=== PATIENT | male | born 1950 | race Caucasian/White ===

== ENCOUNTER 2020-05-21 18:13 | Inpatient (IN) | payer MEDICARE, BC ==
[2020-05-21] MEDS ORDERED: Fentanyl 100 MCG/2 ML VIAL ONE (18:30)
[2020-05-21] MEDS ORDERED: Ketorolac Tromethamine 30 MG/ML VIAL ONE (18:30)
--- NOTE | 2020-05-21 19:38 | RAD ---
AP PELVIS: HISTORY: Fall with injury to left hip. FINDINGS: A comminuted intertrochanteric fracture involving the left hip is noted. The pelvis appears intact. The right hip appears intact. IMPRESSION: Comminuted intertrochanteric fracture of the left hip. POS: AGW
[2020-05-21 19:56] LABS: #Basophils 0.1 thou/uL (0.0-0.2); #Eosinphils 0.1 thou/uL (0.0-0.7); #Lymphocytes 1.3 thou/uL (1.20-3.40); #Monocytes 0.7 thou/uL (0.11-0.59); %Basophils 0.5 % (0.0-1.0); %Eosinophils 0.6 % (0.0-10.0); %Lymphocytes 12.9 % (21.0-51.0); %Monocytes 6.6 % (0.0-10.0); %Neutrophils 79.4 % (42.0-75.0); Hemoglobin 15.3 g/dL (14.0-18.0); Mean Corpuscular HGB CONC 33.4 g/dL (32.0-36.0); Mean Corpuscular Hemoglobin 31.8 pg (27.0-31.0); Mean Corpuscular Volume 95.3 fL (78.0-98.0); RBC Distribution Width 11.8 % (11.5-14.5); Red Blood Cell (RBC) Count 4.82 mill/uL (4.70-6.10); White Blood Cell (WBC) Count 10.1 thou/uL (4.8-10.8)
[2020-05-21 20:15] LABS: Large Platelets SLIGHT; MDiff Complete? YES; Mean Platelet Volume 12.3 fL (7.4-10.4); Platelet Clumps SLIGHT; Platelet Count 106 thou/uL (130-400); Platelet Morphology Comment PLT clumps seen-LOW; Polychromasia SLIGHT = 2-3 cells (100X) (0-2/hpf)
[2020-05-21 20:16] LABS: ALT (SGPT) 32 U/L (8-55); AST (SGOT) 21 U/L (5-34); Albumin 3.9 g/dL (3.4-4.8); Alkaline Phosphatase 77 U/L (40-110); Anion Gap 13 mmol/L (10-20); BUN (Urea Nitrogen) 13 mg/dL (8.4-25.7); Bilirubin, Total 0.7 mg/dL (0.2-1.2); Calc. Creatinine Clearance 0 mL/min (70-130); Calcium 9.1 mg/dL (7.8-10.44); Carbon Dioxide 25 mmol/L (23-31); Chloride 104 mmol/L (98-107); Globulin 2.6 g/dL (2.4-3.5); Glucose 114 mg/dL (80-115); Lipase 22 U/L (8-78); Magnesium 1.9 mg/dL (1.6-2.6); Protein, Total 6.5 g/dL (5.8-8.1); Sodium 138 mmol/L (136-145)
--- NOTE | 2020-05-21 21:04 | HP ---
REQUESTING PHYSICIAN: Dr. Stratton. CONSULTATIONS: Orthopedics, Dr. Saxena. HISTORY OF PRESENT ILLNESS: The patient is a 70-year-old man, who [place] his [place] when he slipped and fell on the ice, landing on his left hip. The patient was unable to ambulate. He was able to contact EMS, who brought him to the emergency department where he underwent evaluation and examination and was noted to have a left proximal femur fracture. At which time, we were asked to evaluate the patient for admission and obtain Orthopedic consultation. The patient denies loss of consciousness or being on any blood thinners. He had no syncopal events prior to his fall. ALLERGIES: LATEX. CURRENT MEDICATIONS: PAST MEDICAL HISTORY: Hyperlipidemia. PAST SURGICAL HISTORY: Bilateral knee surgeries and TURP. SOCIAL HISTORY: The patient drinks alcohol two to three times a week, one to two glasses of wine, dips tobacco. Denies drug use. He is retired from . Lives at home with his spouse. REVIEW OF SYSTEMS: 10-point review of systems is negative as otherwise stated. PHYSICAL EXAMINATION: VITAL SIGNS: Blood pressure 118/69, heart rate 75, respirations 12, oxygen saturation 99% on room air, and temperature is 97.6. GENERAL: The patient is resting comfortably in the ER bed. He is awake, alert, conversant, appropriate. Chemult Coma Scale is 15. HEENT: Head is normocephalic and atraumatic. Eyes, extraocular motion intact. PERRLA bilaterally. Ears are atraumatic without discharge. Nose is atraumatic without discharge. Oropharynx is clear. NECK: Nontender. Trachea is midline with no JVD. CHEST: Clear to auscultation with good inspiratory and expiratory effort. HEART: Regular rate and rhythm. ABDOMEN: Soft, flat, nontender with active bowel sounds. EXTREMITIES: Neurovascularly intact x4. Pelvis is stable with tenderness to palpation to his left hip consistent with his fracture. His left lower extremity again is neurovascularly intact. His foot is slightly externally rotated. BACK: By report is atraumatic and nontender. LABORATORY FINDINGS: White blood cell count 10.1, hemoglobin 15.3, hematocrit 45.9, platelets 106. Sodium 138, potassium 4.0, chloride 104, CO2 of 25, BUN 13, creatinine 1.01, glucose 114. LFTs are unremarkable. Lipase is 22. COVID swab is pending. RADIOGRAPHS: AP pelvis shows a comminuted intertrochanteric fracture of the left hip. ASSESSMENT AND PLAN: 1. Status post ground level fall. 2. Left intertrochanteric femur fracture. 3. History of hyperlipidemia. 4. Acute pain secondary to trauma. Plan will be to admit the patient to the surgical floor. He will be made n.p.o. after midnight. We will do pain control, pulmonary toilet, gastritis and mechanical VTE prophylaxis. Postoperatively, we will begin working physical and occupational therapy and discuss placement at that time. Dr. Saxena was contacted regarding this patient and he will see the patient in the morning and plan for surgery in the morning. The evaluation, examination, laboratory, and radiographic findings discussed with attending after this dictation. Job ID: [id number]
[2020-05-21 21:31] LABS: SARS-CoV-2 NAA Rapid Test Not Detected (NotDetected)
[2020-05-21] MEDS ORDERED: Ondansetron ODT 4 MG TAB PO PRN (23:42)
[2020-05-21] MEDS ORDERED: Cyclobenzaprine 10 MG TAB PO PRN (23:42)
[2020-05-21] MEDS ORDERED: Dextrose 50% Abboject 50 ML SYRINGE SLOW IVP PRN (23:42)
[2020-05-21] MEDS ORDERED: hydrALAZINE 20 MG/ML VIAL SLOW IVP PRN (23:42)
[2020-05-21] MEDS ORDERED: Ondansetron PF 4 MG/2 ML Vial IVP PRN (23:42)
[2020-05-21] MEDS ORDERED: Dextrose 5% in Water 1,000 ML IV PRN (23:42)
[2020-05-21] MEDS ORDERED: Morphine 2 MG/ML VIAL SLOW IVP PRN (23:42)
[2020-05-21 23:45] VITALS: BMI 29.8
[2020-05-21] MEDS ORDERED: traMADol HCl 50 MG TAB ONE (23:57)
[2020-05-21] MEDS ORDERED: Famotidine 20 MG TAB PO SCH (23:59)
[2020-05-22] MEDS: Sodium Chloride 0.9% 1,000 ML IV SCH ×2 (00:03→12:41)
[2020-05-22] MEDS: traMADol HCl 50 MG TAB PO PRN ×2 (00:03→20:18)
[2020-05-22] MEDS ORDERED: Famotidine 20 MG TAB ONE (00:06)
[2020-05-22] MEDS ORDERED: Acetaminophen 325 MG TAB ONE ×2 (00:06→12:38)
[2020-05-22] MEDS: Acetaminophen 500 MG TAB PO SCH ×3 (00:08→20:25)
[2020-05-22 05:38] LABS: #Eosinphils 0.1 thou/uL (0.0-0.7); #Lymphocytes 2.3 thou/uL (1.20-3.40); #Neutrophils 5.1 thou/uL (1.40-6.50); %Basophils 0.4 % (0.0-1.0); %Eosinophils 1.5 % (0.0-10.0); %Monocytes 11.3 % (0.0-10.0); %Neutrophils 59.7 % (42.0-75.0); Hemoglobin 13.3 g/dL (14.0-18.0); Mean Corpuscular HGB CONC 33.1 g/dL (32.0-36.0); Mean Corpuscular Hemoglobin 31.6 pg (27.0-31.0); Mean Corpuscular Volume 95.4 fL (78.0-98.0); Mean Platelet Volume 11.8 fL (7.4-10.4); Platelet Count 94 thou/uL (130-400); RBC Distribution Width 11.8 % (11.5-14.5); White Blood Cell (WBC) Count 8.6 thou/uL (4.8-10.8)
[2020-05-22 05:47] LABS: Anion Gap 11 mmol/L (10-20); BUN (Urea Nitrogen) 16 mg/dL (8.4-25.7); Calc. Creatinine Clearance 116 mL/min (70-130); Calcium 8.5 mg/dL (7.8-10.44); Carbon Dioxide 22 mmol/L (23-31); Chloride 107 mmol/L (98-107); Glucose 101 mg/dL (80-115); Potassium 3.9 mmol/L (3.5-5.1); Sodium 136 mmol/L (136-145)
[2020-05-22] MEDS ORDERED: Ibuprofen 200 MG TAB ONE (06:47)
[2020-05-22] MEDS: Ibuprofen 600 MG TAB PO SCH ×3 (06:50→22:06)
[2020-05-22] MEDS ORDERED: CEFAZOLIN 2 GM in Premix Bag 1 BAG IVPB SCH (07:30)
--- NOTE | 2020-05-22 08:26 | CON ---
DATE OF CONSULTATION: This is Apollo Walsh PA-C dictating a report for Lamonte Saxena MD. HISTORY OF PRESENT ILLNESS: We were asked by ER and Trauma to see the patient. The patient was outside, slipped, fell, sustaining a left hip fracture. Denies any other injuries. No loss of consciousness. He did state that he knew he broke his hip because he heard a loud crunch. He has been n.p.o. since last night. is coming in this morning. Otherwise, he is awake, alert, oriented and currently in again no acute distress. PAST MEDICAL HISTORY: Positive for gout, hyperlipidemia. CURRENT MEDICATIONS: Simvastatin. ALLERGIES: LATEX. SURGERIES: Knees, TURP. FAMILY HISTORY: For this visit is noncontributory. SOCIAL HISTORY: Occasional EtOH beverage, 2 to 3 times a week. Dips tobacco. No drug use. He is a retired software support engineer. Resides at home with his spouse. REVIEW OF SYSTEMS: Other than left hip pain, he has denied any chest pain, shortness of breath. No confusion. No bowel or bladder problems. Rest of review of systems is negative. PHYSICAL EXAMINATION: GENERAL: Well-nourished, well-developed male, alert, pleasant, in no acute distress. NEUROLOGIC: Speech clear. Affect pleasant. Answers questions appropriately. He is alert and oriented x3. HEENT: Scalp, atraumatic. Normal exam. Face symmetric. Tongue midline. NECK: Supple. Trachea midline. EXTREMITIES: Upper extremities; equal size, shape, and symmetry. Normal bulk and tone. Movements, pulses, and sensations are equal. Lower extremities; left lower extremity is a little shortened and outward rotated. Otherwise, he has good strength and sensations, and are equal bilaterally. He is moving both lower extremities well, right greater than left obviously due to the fracture. CHEST: Respirations 16. PELVIS: No pain with rocking. LABORATORY DATA AND IMAGING: CBC, stable. Chemistries, stable. COVID, negative. X-rays show a left intertrochanteric fracture. PLAN: I spoke with the patient. He will undergo a left trochanteric femoral nail, short in the left hip. I went over the details of the surgery with the patient. His questions and concerns have been addressed. He understands risks and benefits of surgery and is amenable to go forth with surgery. We will add a two-view hip x-ray. His will come in this morning. Once he gets through his surgery and he is feeling better, he gets start some therapy this afternoon. The patient will get antibiotics postop. He was added on the surgery schedule. Job ID: [id number]
--- NOTE | 2020-05-22 09:54 | RAD ---
TWO VIEWS LEFT HIP: DATE: 05/22/2020. PROVIDED CLINICAL HISTORY: Preop. FINDINGS: Comparison 05/21/2020 pelvic radiograph. Displaced and angulated intertrochanteric left proximal femo ral fracture is redemonstrated. Additional fracture is not evident. The left hip joint space appear s preserved. The femoral acetabular relationship appears maintained. IMPRESSION: Displaced intertrochanteric left proximal femoral fracture. POS: PEARL
[2020-05-22] MEDS ORDERED: Fentanyl 100 MCG/2 ML VIAL ONE ×3 (10:11→11:49)
[2020-05-22] MEDS ORDERED: Ketorolac Tromethamine 30 MG/ML VIAL IVP PRN (11:26)
[2020-05-22] MEDS ORDERED: Promethazine HCl 25 MG/ML VIAL SLOW IVP PRN (11:26)
[2020-05-22] MEDS ORDERED: HYDROmorphone 2 MG/ML VIAL SLOW IVP PRN (11:26)
[2020-05-22] MEDS ORDERED: Meperidine HCl/PF 25 MG/ML VIAL SLOW IVP PRN (11:26)
[2020-05-22] MEDS ORDERED: Ondansetron HCl/PF 4 MG/2 ML Vial IVP PRN (11:26)
[2020-05-22] MEDS ORDERED: Meperidine HCl/PF 25 MG/ML VIAL ONE (11:28)
--- NOTE | 2020-05-22 11:48 | RAD ---
LEFT HIP 2 VIEWS: HISTORY: Intraoperative films. FINDINGS: These show a compression screw and short stent intramedullary haydee stabilizing an intratrochanteric fr acture in satisfactory position. IMPRESSION: Open reduction internal fixation intratrochanteric fracture. POS: EDISON
[2020-05-22] MEDS: Famotidine 20 MG TAB PO SCH ×2 (13:11→20:21)
[2020-05-22] MEDS ORDERED: Ondansetron PF 4 MG/2 ML Vial ONE (15:36)
[2020-05-22] MEDS ORDERED: Succinylcholine 200 MG/10 ml SYRINGE FS ONE (15:36)
[2020-05-22] MEDS ORDERED: Glycopyrrolate 0.2 MG/ML 5 ML SYRINGE ONE (15:36)
[2020-05-22] MEDS ORDERED: Rocuronium Bromide 10 MG/ML (10ML VIAL) ONE (15:36)
[2020-05-22] MEDS ORDERED: Dexamethasone 20 MG/5 ML VIAL ONE (15:36)
[2020-05-22] MEDS ORDERED: Lidocaine 1% PF 5 ML VIAL ONE (15:36)
[2020-05-22] MEDS ORDERED: PROPOFOL 200 MG/20 ML VIAL ONE (15:36)
--- NOTE | 2020-05-22 15:48 | OP ---
DATE OF PROCEDURE: 05/22/2020 PREOPERATIVE DIAGNOSIS: Left intertrochanteric femur fracture. POSTOPERATIVE DIAGNOSIS: Left intertrochanteric femur fracture. PROCEDURE PERFORMED: Left TFN for intertrochanteric femur fracture. ANESTHESIA: General. LAUNDRY ROUTE DRIVER: Apollo Walsh PA-C ESTIMATED BLOOD LOSS: 50 mL. IMPLANTS: Synthes TFNA 10 x 170 mm nail with 105 mm hip screw. COMPLICATIONS: None. DRAINS: None. SPECIMEN: None. OUTCOME: Satisfactory. INDICATIONS: Mr. Carter is a 70-year-old gentleman status post ground level fall on ice, sustaining left intertrochanteric femur fracture. After discussion with the patient including risks and benefits, we decided to proceed with open reduction and internal fixation of this left intertrochanteric femur fracture with a TFN device. Informed consent has been obtained. I believe all questions have been answered. DESCRIPTION OF PROCEDURE: The patient was brought to the operating room and a time-out was performed, followed by induction of general anesthesia. Next, the patient was positioned supine on the OR table with the injured extremity held in longitudinal traction and slight internal rotation while the well leg was held in extension at the hip on a well-padded bolster. A sterile prep and drape were then performed of the left lateral thigh. A small incision was made proximal to the tip of the greater trochanter after skin was sharply incised, dissection was carried down bluntly such that the tip of the greater trochanter could be palpated. Next, while my curriculum assistant provided reduction of the fracture manually, I passed a threaded guidewire from the tip of the greater trochanter, into the proximal femoral intramedullary canal. Once appropriately positioned, the reamer was passed over this guidewire. After the canal had been opened with this reamer, a 10 x 170 mm TFN nail was passed into the proximal femoral canal while my curriculum assistant maintained reduction of the fracture. Once delivered to an appropriate depth, the outrigger jig was inserted through a 2nd distal incision, bringing it up against the lateral cortex of the femur. A threaded guidewire was then passed through this jig crossing the lateral cortex of the femur and going up the middle of femoral neck, into the femoral head approaching a [id number] position. Once appropriately positioned, measurement of this pin was used to determine length of reaming as well as length of hip screw. The reamer was passed over the threaded guidewire and then the hip screw was passed over the threaded guidewire delivering it to an appropriate depth. The locking mechanism was then engaged and then backed off a half turn to allow for sliding of the hip screw. At the completion of this, the hip screw jig was removed and then the trocars inserted through the same distal incision and a single distal cross-lock screw inserted without difficulty. The jig was then removed from the nail and final AP and lateral C-arm images were obtained of the fracture and the hardware, both of which were felt to be well aligned. The 2 small wounds were then irrigated by my curriculum assistant and closed with 2-0 Vicryl and mary. Xeroform gauze and tape dressing was then applied to the thigh and patient was transferred to recovery room in stable condition. There were no complications. He tolerated the procedure well. Job ID: [id number]
[2020-05-22] MEDS: CEFAZOLIN 2 GM in Premix Bag 1 BAG IVPB SCH ×2 (17:00→23:16)
[2020-05-22] MEDS ORDERED: traMADol HCl 50 MG TAB ONE (20:16)
--- NOTE | 2020-05-23 03:31 | PRG ---
DATE OF SERVICE: 05/23/2020 Mr. Carter is a 70-year-old male status pos left femur fracture repair. The patient is recovering in the PACU overnight, because there are no beds on the floor. The patient will be transferred up to the floor in the morning once the beds are available. The patient is scheduled to work with PT/OT. Case Management has been informed about the patient. We will continue pain regimen and bowel regimen while the patient is in the hospital. Job ID: [id number] [facility]
[2020-05-23] MEDS ORDERED: diphenhydrAMINE 25 MG CAP ONE (06:37)
[2020-05-23] MEDS ORDERED: Acetaminophen 325 MG TAB ONE (06:37)
[2020-05-23] MEDS: Acetaminophen 500 MG TAB PO SCH ×5 (06:42→22:42)
[2020-05-23] MEDS: Ibuprofen 600 MG TAB PO SCH ×4 (06:45→19:58)
[2020-05-23 08:17] LABS: Anion Gap 12 mmol/L (10-20); BUN (Urea Nitrogen) 12 mg/dL (8.4-25.7); Calc. Creatinine Clearance 101 mL/min (70-130); Calcium 8.9 mg/dL (7.8-10.44); Carbon Dioxide 25 mmol/L (23-31); Chloride 103 mmol/L (98-107); Glucose 120 mg/dL (80-115); Phosphorus 2.7 mg/dL (2.3-4.7); Potassium 4.2 mmol/L (3.5-5.1); Sodium 136 mmol/L (136-145)
[2020-05-23 09:10] LABS: #Lymphocytes 1.6 thou/uL (1.20-3.40); #Monocytes 1.1 thou/uL (0.11-0.59); #Neutrophils 10.1 thou/uL (1.40-6.50); %Eosinophils 0.1 % (0.0-10.0); %Lymphocytes 12.1 % (21.0-51.0); %Monocytes 8.7 % (0.0-10.0); %Neutrophils 79.1 % (42.0-75.0); Hemoglobin 12.2 g/dL (14.0-18.0); Mean Corpuscular Hemoglobin 34.1 pg (27.0-31.0); Mean Corpuscular Volume 97.4 fL (78.0-98.0); Red Blood Cell (RBC) Count 3.58 mill/uL (4.70-6.10); White Blood Cell (WBC) Count 12.8 thou/uL (4.8-10.8)
[2020-05-23 10:06] LABS: Mean Platelet Volume 11.2 fL (7.4-10.4); Platelet Count 88 thou/uL (130-400); Platelet Morphology Comment Appears Decreased; RBC Distribution Width 11.8 % (11.5-14.5)
[2020-05-23 12:09] LABS: MDiff Complete? YES
[2020-05-23] MEDS ORDERED: traMADol HCl 50 MG TAB ONE (13:07)
[2020-05-23] MEDS: traMADol HCl 50 MG TAB PO PRN ×2 (13:10→22:41)
--- NOTE | 2020-05-23 13:38 | PRG ---
DATE OF SERVICE: 05/23/2020 SUBJECTIVE: The patient is hospital day #2, postop day #1, status post ground level fall, in which he sustained a left hip fracture, in which he underwent left TFN for intertrochanteric femur fracture repair. He tolerated this procedure well. Unfortunately due to hospital capacity, he remained in the postanesthesia care unit overnight, which has also delayed his physical and occupational therapy. Otherwise, he is doing well. He is tolerating a diet. His pain is controlled. We will also ask to start working on placement with Case Management. OBJECTIVE: VITAL SIGNS: Temperature is 98.4, heart rate 83, blood pressure 119/65, respirations 19, oxygen saturation 97% on room air. GENERAL: The patient is resting comfortably in bed. He is awake, alert, conversant, and appropriate. John Coma Scale is 15. HEENT: Unremarkable. LUNGS: Clear to auscultation bilaterally. HEART: Regular rate and rhythm. ABDOMEN: Soft, flat, and nontender with active bowel sounds. EXTREMITIES: Neurovascularly intact x4. Postop dressing is clean, dry, and intact. LABORATORY FINDINGS: White blood cell count 12.8, hemoglobin 12.2, hematocrit 34.9, platelets 88. Sodium 136, potassium 4.2, chloride 103, CO2 of 25, BUN 12, creatinine 0.97, glucose 120, magnesium 2.0, phosphorus 2.7. There are no radiographs to review this morning. ASSESSMENT AND PLAN: 1. Status post ground-level fall. 2. Postoperative day #1, status post trochanteric fixation nail placement for intertrochanteric femur fracture of left femur. 3. History of hyperlipidemia. 4. Acute pain secondary to trauma, improved. PLAN: Plan will be to begin physical and occupational therapy and await placement. The patient was discussed with Dr. Perdomo during rounds this morning. Job ID: [id number]
[2020-05-23] MEDS: CEFAZOLIN 2 GM in Premix Bag 1 BAG IVPB SCH (15:07)
[2020-05-23] MEDS: Enoxaparin Sodium 40 MG/0.4 ML SYRINGE SC SCH (15:42)
[2020-05-23] MEDS: Famotidine 20 MG TAB PO SCH ×2 (15:42→19:58)
--- NOTE | 2020-05-24 04:11 | PRG ---
DATE OF SERVICE: 05/24/2020 A 70-year-old status post ground level fall, postop day two, repair of left hip fracture. During evening rounds, the patient is not complaining of pain, tolerating diet, and voiding spontaneously. Vitals: Temperature 95, pulse 82, respiratory rate 16, O2 saturation 94 on room air, blood pressure 126/67. The patient is making greater than 50 mL urine an hour. CBC notable for slight drop in hemoglobin from 13.3 to 12.2, continue trending down most likely from surgery, dilutional. The patient is resting comfortably in bed. Speaking full sentences. Moving all four extremities. Encouraged the patient to work with PT, OT, mechanical DVT prophylaxis. Job ID: [id number] [facility]
[2020-05-24] MEDS: Ibuprofen 600 MG TAB PO SCH ×3 (06:13→21:07)
[2020-05-24] MEDS: Acetaminophen 500 MG TAB PO SCH ×3 (06:13→17:39)
[2020-05-24 06:22] LABS: #Basophils 0.1 thou/uL (0.0-0.2); #Eosinphils 0.1 thou/uL (0.0-0.7); #Monocytes 0.8 thou/uL (0.11-0.59); #Neutrophils 5.5 thou/uL (1.40-6.50); %Basophils 0.6 % (0.0-1.0); %Eosinophils 1.5 % (0.0-10.0); %Lymphocytes 31.2 % (21.0-51.0); %Monocytes 8.6 % (0.0-10.0); %Neutrophils 58.1 % (42.0-75.0); Hemoglobin 10.3 g/dL (14.0-18.0); Mean Corpuscular HGB CONC 33.5 g/dL (32.0-36.0); Mean Corpuscular Hemoglobin 32.5 pg (27.0-31.0); Mean Corpuscular Volume 97.1 fL (78.0-98.0); Mean Platelet Volume 12.3 fL (7.4-10.4); Platelet Count 46 thou/uL (130-400); RBC Distribution Width 11.9 % (11.5-14.5); Red Blood Cell (RBC) Count 3.16 mill/uL (4.70-6.10); White Blood Cell (WBC) Count 9.4 thou/uL (4.8-10.8)
[2020-05-24] MEDS: Enoxaparin Sodium 40 MG/0.4 ML SYRINGE SC SCH ×2 (08:59→15:21)
[2020-05-24] MEDS: Famotidine 20 MG TAB PO SCH ×2 (08:59→21:09)
[2020-05-24] MEDS: traMADol HCl 50 MG TAB PO PRN ×2 (08:59→17:39)
[2020-05-24] MEDS ORDERED: Calcium Chloride 1 GM/10 ML Abboject SYRINGE ONE (16:16)
[2020-05-24] MEDS ORDERED: Phenylephrine 10 MG/ML VIAL ONE (16:16)
[2020-05-24] MEDS ORDERED: Sodium Bicarb 50 MEQ/50 ML Abboject 8.4% SYRINGE ONE (16:16)
[2020-05-24] MEDS ORDERED: Norepinephrine 4 MG/4 ML VIAL ONE (16:16)
[2020-05-24] MEDS ORDERED: Sodium Chloride 0.9% 0 ML ONE (16:27)
[2020-05-25] MEDS: Acetaminophen 500 MG TAB PO SCH ×4 (00:01→17:59)
--- NOTE | 2020-05-25 00:29 | PRG ---
DATE OF SERVICE: 05/24/2020 SUBJECTIVE: Mr. Carter is a 70-year-old male, hospital day #3, postop day #2, status post ground level fall, left hip fracture, underwent TFN for intertrochanteric femur fracture repair. Tolerated procedure well. Still having some pain. He is working with PT and OT. He believes that he wants to go to rehab. Of note, his platelets dropped to 46 today. He has no signs of bright red bleeding. States that he does not chronically have a low blood pressure. Otherwise, other than some mild pain, no acute complaints today, is tolerating a diet, spontaneously voiding. OBJECTIVE: VITAL SIGNS: Temperature is 97.9, blood pressure is 102/65, heart rate is 73, breathing 14 times per minute, 95% on room air. GENERAL: A 70-year-old male, sitting up, in no acute distress. RESPIRATORY: Equal rise and fall. No respiratory distress. CARDIOVASCULAR: Strong pulses. NEUROLOGIC: Alert and oriented. GCS of 15. MUSCULOSKELETAL: He has good sensation in all extremities. Has surgical site noted that is dry. PSYCH: Normal mood and affect. DIAGNOSTIC CRITERIA: Today, white blood cell count of 9.4, platelets are 46. Hemoglobin and hematocrit are 10.3 and 30.6 respectively. There is no chemistry to review today. ASSESSMENT AND PLAN: 1. Ground level fall. 2. Postoperative day #2, status post trochanteric fixation with nail placement for intertrochanteric femur fracture. 3. History of hyperlipidemia. 4. Acute pain secondary to trauma, that is improving. 5. Thrombocytopenia. No signs of bright red bleeding. PLAN: We will hold the [employer] today, reassess tomorrow. Continue work with PT/OT. Consider HIT antibody testing. If platelets continue to drop, the patient can have SCDs placed at this time. Job ID: [id number]
[2020-05-25] MEDS: Ibuprofen 600 MG TAB PO SCH ×3 (06:37→21:14)
[2020-05-25 06:51] LABS: #Basophils 0.1 thou/uL (0.0-0.2); #Eosinphils 0.4 thou/uL (0.0-0.7); #Lymphocytes 2.7 thou/uL (1.20-3.40); #Monocytes 0.7 thou/uL (0.11-0.59); #Neutrophils 3.6 thou/uL (1.40-6.50); %Basophils 0.8 % (0.0-1.0); %Eosinophils 5.2 % (0.0-10.0); %Monocytes 9.9 % (0.0-10.0); %Neutrophils 48.1 % (42.0-75.0); Hemoglobin 9.8 g/dL (14.0-18.0); Mean Corpuscular HGB CONC 33.7 g/dL (32.0-36.0); Mean Corpuscular Hemoglobin 32.4 pg (27.0-31.0); Mean Platelet Volume 13.1 fL (7.4-10.4); Platelet Count 47 thou/uL (130-400); RBC Distribution Width 11.8 % (11.5-14.5); Red Blood Cell (RBC) Count 3.01 mill/uL (4.70-6.10); White Blood Cell (WBC) Count 7.5 thou/uL (4.8-10.8)
[2020-05-25] MEDS: traMADol HCl 50 MG TAB PO PRN ×3 (08:13→22:38)
[2020-05-25] MEDS: Famotidine 20 MG TAB PO SCH ×2 (08:13→21:14)
--- NOTE | 2020-05-25 11:58 | PRG ---
DATE OF SERVICE: 05/25/2020 SUBJECTIVE: Marco is a 70-year-old male, postop day #3 from a left hip intertrochanteric fracture treated with TFN fixation. He is doing very well. He is up ambulating independently, back and forth to the restroom with standby assist. OBJECTIVE: VITAL SIGNS: Temperature 97.7, pulse 74, respiratory rate 18, blood pressure 114/70. GENERAL: He is alert and oriented to person, place, time and situation. Responsive and appropriate with examiner, conversive and pleasant. Incision is clean. No erythema. No strike through. No malrotation or shortening of the left lower extremity. LABORATORY DATA: Hemoglobin and hematocrit 9.8, 28.9. IMPRESSION: A 70-year-old male postoperative day #3, left hip intertrochanteric fracture treated with short nail fixation. PLAN: Continue current care. Weight bear as tolerated. Recheck tomorrow. Disposition per Trauma Team. Job ID: [id number]
[2020-05-25] MEDS ORDERED: Bisacodyl 5 MG TAB PO SCH (12:30)
[2020-05-25] MEDS ORDERED: Senokot 8.6 MG TAB PO SCH (12:30)
--- NOTE | 2020-05-25 17:57 | PRG ---
DATE OF SERVICE: 05/25/2020 SUBJECTIVE: A 70-year-old male, hospital day #4, postop day #3, status post ground level fall, left hip fracture, underwent TFN for intertrochanteric femur fracture. He is sitting up in bed. States that he has been walking, has minimal pain. He has not had a bowel movement. We are increasing his bowel regimen. His only complaint today. He is tolerating a diet, spontaneously voiding. He is noted to have thrombocytopenia. He was never given heparin or Lovenox. I doubt his platelets are stable today and no outward signs of bleeding. OBJECTIVE: VITAL SIGNS: His temperature is 97.3, blood pressure is 109/69, heart rate is 70, respiratory rate is 18, saturating 96% on room air. GENERAL: A 70-year-old male, sitting up, in no acute distress. HEENT: Normocephalic. Trachea is midline. RESPIRATORY: Equal rise and fall. No respiratory distress. CARDIOVASCULAR: Strong pulses. NEURO: Alert and oriented. GCS 15. EXTREMITIES: Moves extremities well. Warm extremities. SKIN: Warm and dry. PSYCH: Normal mood and affect. LABORATORY DATA: His white blood count is 7.5, platelets are 47. Hemoglobin and hematocrit are 9.8 and 28.9 respectively. ASSESSMENT AND PLAN: 1. Ground-level fall. 2. Postoperative day #3, status post trochanteric fixation with nail placement for intertrochanteric femur fracture. 3. History of hyperlipidemia. 4. Acute traumatic pain that is improving. 5. Thrombocytopenia, stable. PLAN: 1. Continue to monitor. 2. Continue to hold heparin. 3. Work with PT/OT. 4. Hoping for rehab placement in the ensuing days. Job ID: [id number]
[2020-05-26] MEDS: Acetaminophen 500 MG TAB PO SCH ×3 (00:43→13:46)
[2020-05-26] MEDS: Ibuprofen 600 MG TAB PO SCH (05:58)
[2020-05-26] MEDS: traMADol HCl 50 MG TAB PO PRN (08:41)
[2020-05-26] MEDS: Famotidine 20 MG TAB PO SCH (08:41)
[2020-05-26] MEDS ORDERED: Bisacodyl 5 MG TAB PO SCH (09:00)
[2020-05-26] MEDS ORDERED: Senokot 8.6 MG TAB PO SCH (09:00)
[2020-05-26 11:40] VITALS: BP 102/67; TEMP 98.5
--- NOTE | 2020-05-26 14:36 | PRG ---
DATE OF SERVICE: 05/26/2020 This patient was evaluated and discussed with Dr. Perdomo and he agrees with the plan as stated below. SUBJECTIVE: This is a 70-year-old male on hospital day #5, postop day #4, S/P ground level fall with a left hip fracture. He underwent TFN for IT femur fracture. On evaluation, the patient was working with physical therapy. He was walking with the use of 4 wheeled walker and was able to demonstrate his ability to safely get up and down from a step. He states his pain is well controlled and is a maximum of 3 to 4/10, which occurs only when he is walking. He is confident and comfortable going home at this time and would actually prefer that over placement. He does not have a walker at home, which is what he has been using to mobilize here in the hospital, so that is something that will have to be set up prior to going. Bowel movement has not yet been documented despite an increasing bowel regimen, but the patient is eating well and tolerating his food well. OBJECTIVE: VITAL SIGNS: Temperature 98.5 Fahrenheit, pulse 75, respiratory rate 18, oxygen saturation 97% on room air, BP 102/67. GENERAL: This is a 70-year-old male who was able to walk with a walker with minimal assistance from physical therapy and was able to transfer from walker to chair without difficulty. RESPIRATORY: Equal rise and fall of chest. No respiratory distress or difficulty breathing. NEURO: Alert and oriented. EXTREMITIES: Moves extremities well. He is able to ambulate comfortably, steadily, freely. LABORATORY DATA: White count 7.5, down from 10.1 on admission. Hemoglobin 9.8, down from 15.3 on admission. Hematocrit 28.9, down from 45.9 on admission. Platelets 47,000, down from 106,000 on admission. ASSESSMENT: 1. Ground level fall. 2. Postop day #4 status post trochanteric fixation with nail placement for left intertrochanteric femur fracture. 3. History of hyperlipidemia. 4. Thrombocytopenia, suspected to be 2/2, hemodilution. PLAN: It is expected once he is able to be at home in a more comfortable environment, the patient will be able to have a bowel movement. His platelets have continued to downtrend from 106,000 to 47,000. The only medication he is on that could potentially be associated with thrombocytopenia was Pepcid, which was discontinued and switched for Protonix. He has not had any bleeding and all other cell lines have also decreased substantially from admission, as demonstrated above, which leads us to believe this thrombocytopenia is a dilution issue. This patient will get discharged today with PT with Home Health and a walker.. A discharge summary is to follow this dictation. Job ID: [id number] [facility]
--- NOTE | 2020-05-26 23:57 | DIS ---
DATE OF ADMISSION: 05/21/2020 DATE OF DISCHARGE: 05/26/2020 RESIDENT: Clarisa Sargent MD ATTENDING: Gato Perdomo DO CONSULTS: Orthopedic Surgery, Dr. Saxena (05/22). PROCEDURE: Left TFN for IT femur fracture (05/22). PRIMARY DIAGNOSIS: Ground level fall resulting in left intertrochanteric femur fracture, S/P TFN. SECONDARY DIAGNOSES: 1. Hyperlipidemia. 2. Thrombocytopenia. HISTORY OF PRESENT ILLNESS/HOSPITAL COURSE: This is a 70-year-old man, who slipped and fell on ice and landed on his left hip, who then contacted EMS and was brought to the emergency department where he was found to have a left proximal femur fracture. Orthopedic Surgery, Dr. Saxena, was consulted and took the patient for TFN on 05/22. The patient has been able to ambulate well with the use of a walker and physical therapy and has requested to be sent home with physical therapy services rather than go to rehab. The patient has demonstrated that he is able to ambulate with minimal assistance from physical therapy including ascending and descending steps. The patient's pain has been well controlled on oral medications including Tylenol, ibuprofen, and tramadol, which he can continue in the outpatient setting. The patient has been tolerating his diet well and has been voiding appropriately, although he has not yet had a bowel movement. It is expected that he will be able to once he is in a more comfortable setting; this is not a concerning enough issue at this time to warrant keeping him in the hospital. As such, the patient will be discharged home with a walker and physical therapy services through [facility] in [place], [place]. FOLLOW UP: The patient is encouraged to follow up with his PCP within 7-10 days of discharge. He is encouraged to follow up with Dr. Indra Felton in 14 days. . Job ID: [id number] [facility]
== END 2020-05-26 15:10 | disposition home or self-care (01) | DRG 482 ==
LOC: ERS 18:13 → ERHOLD 20:00 → PACU-TCU 05-22 11:57 → SURG A 05-23 13:55
PROVIDERS: ADMIT Specialist; ATTEND Specialist
PROC: 0QS736Z Reposition Left Upper Femur with Intramedullary Internal Fixation Device, Percutaneous Approach (ICD-10-PCS; principal; 2020-05-22)
DX: S72.142A Displaced intertrochanteric fracture of left femur, initial encounter for closed fracture (principal); Z20.822 Contact with and (suspected) exposure to COVID-19; E78.5 Hyperlipidemia, unspecified; W01.0XXA Fall on same level from slipping, tripping and stumbling without subsequent striking against object, initial encounter; M10.9 Gout, unspecified; Z91.040 Latex allergy status; D69.6 Thrombocytopenia, unspecified; Z79.899 Other long term (current) drug therapy
CPT/HCPCS: 36415; 72170; 76000; 80048; 80053; 83690; 83735; 84100; 85025; 96374; 96375; C1713; G0390; J0690; J1100; J1650; J1885; J2175; J2370; J2405; J2704; J3010; Q0163; U0002